=== PATIENT | male | born 1955 | race Caucasian/White ===

== ENCOUNTER 2022-07-15 06:56 | Emergency (ER) | payer OTHER, SELFPAY ==
[2022-07-15] VITALS (12 sets, daily range): BP systolic 119–170; BP diastolic 63–95; PULSE 85–87; RESP 17–20; TEMP 36.8; O2SAT 94–100
--- NOTE | ~2022-07-15 | CT_ITS ---
EXAMINATION: CT abdomen pelvis w con DATE: 07/15/2022 08:20 INDICATION: Abdominal pain TECHNIQUE: Computed tomography (CT) of the abdomen and pelvis was performed with 100 mL Omnipaque-350 intravenous contrast. Automated exposure control and iterative reconstruction technique were employe d. The dose-length product was 1514.55 mGy-cm. COMPARISON: None FINDINGS: Mild dependent atelectasis in the bilateral lower lobes and lingula. Heart size is normal. Atheroscle rotic coronary artery calcification. No pericardial or pleural effusion. Mild left gynecomastia. Live r, gallbladder, spleen, pancreas, bilateral adrenal glands and kidneys are normal. There is extensive colonic diverticulosis with a descending and sigmoid colon predominance. There is no adjacent infla mmatory change to suggest diverticulitis. Appendix is not visualized and there are surgical clips at the tip the cecum consistent with prior appendectomy. No bowel obstruction. Dense streak artifact as sociated with bilateral total hip arthroplasties obscures the posterior portion of the bladder which appears otherwise normal. Small right and moderate sized left fat-containing inguinal hernias. Severe lumbar and moderate lower thoracic spondylosis. Chronic T8 compression fracture with 20% anterior ve rtebral body height loss. IMPRESSION: 1. No acute intra-abdominal/pelvic process. 2. Diverticulosis. 3. Bilateral fat-containing inguinal hernias. Reviewed, dictated and finalized at location A. S [employer]
--- NOTE | 2022-07-15 07:43 | ED.GENADULT ---
HPI - General Adult General Chief complaint: Unspecified Stated complaint: Belching, abd distention Time Seen by Provider: 07/15/22 07:08 History of Present Illness HPI narrative: 67-year-old male presenting to the emergency department for evaluation of intermittent abdominal pain and belching. Patient states every morning for the last 2 weeks he wakes up he has belching. Patient also reports that he has had large bowel movements. Patient states this morning when he woke up he had fullness over his epigastrium but this was improved with belching. Patient states he also had a large bowel movement while in the ED and since then all of his abdominal pressure has resolved. Patient does have a prior history of abdominal surgery, prior appendectomy. Patient denies being diabetic Related Data Allergies Allergy/AdvReac Type Severity Reaction Status Date / Time No Known Allergies Allergy Verified 07/15/22 07:06 Review of Systems Review of Systems: All systems reviewed & are unremarkable except as noted in HPI and below Exam Narrative: APPEARANCE: Well appearing, no pain, no distress, well-nourished. HEAD: normocephalic, atraumatic. EYES: PERRLA/EOMI, conjunctivae clear. NOSE: Normal no drainage NECK: Supple. No adenopathy, no masses. RESPIRATORY: Airway patent, respirations nonlabored. Clear to auscultation bilaterally, no rales, rhonchi, wheezing. CARDIOVASCULAR: Regular rate and rhythm without murmurs rubs or gallops. ABDOMINAL: Soft, nontender, nondistended, normal bowel sounds MUSCULOSKELETAL: Moves all extremities. Strength/ROM intact, No edema, No calf tenderness. NEURO: Alert. Cranial nerves II through XII intact. Grossly intact SKIN: Warm, dry. Normal Color Course Course Emergency Course: 67-year-old male with intermittent belching, abdominal pressure and large bowel movements. Baseline labs are being ordered. CT scan will be ordered to evaluate for SBO, constipation, colitis. Patient declined any medications for nausea for pain control at this time. Patient was afebrile with no leukocytosis. Patient's chemistries were similar to his baseline. Patient's glucose was elevated at 154. UA showed no evidence of urinary tract infection. Patient CT showed no acute abnormalities. Patient was updated on the results of his work-up. Patient does describe having tingling of his hands and feet which does sound consistent with a diabetic neuropathy. Patient's blood sugars were elevated here. Patient was encouraged to have close follow-up with his primary care physician regarding further diabetic work-up. Patient was also encouraged to increase his dietary fiber intake to help with his constipation. Patient denies any complaints at time of discharge. Patient was comfortable to plan for discharge and close follow-up. Vital Signs Vital signs: Vital Signs Temperature 98.2 F 07/15/22 07:01 Pulse Rate 87 07/15/22 07:01 Respiratory Rate 17 07/15/22 07:01 Blood Pressure 170/68 H 07/15/22 07:01 Pulse Oximetry 97 07/15/22 07:01 Oxygen Delivery Room Air 07/15/22 07:01 Temperature 98.2 F 07/15/22 07:01 Pulse Rate 85 07/15/22 09:56 Respiratory Rate 18 07/15/22 09:56 Blood Pressure 119/79 07/15/22 09:56 Pulse Oximetry 95 07/15/22 09:56 Oxygen Delivery Room Air 07/15/22 07:01 Medical Decision Making Vital Signs Vital Signs: Vital Signs Temperature 98.2 F 07/15/22 07:01 Pulse Rate 87 07/15/22 07:01 Respiratory Rate 17 07/15/22 07:01 Blood Pressure 170/68 H 07/15/22 07:01 Pulse Oximetry 97 07/15/22 07:01 Oxygen Delivery Room Air 07/15/22 07:01 Temperature 98.2 F 07/15/22 07:01 Pulse Rate 85 07/15/22 09:56 Respiratory Rate 18 07/15/22 09:56 Blood Pressure 119/79 07/15/22 09:56 Pulse Oximetry 95 07/15/22 09:56 Oxygen Delivery Room Air 07/15/22 07:01 Lab Data Lab results reviewed: Yes I reviewed the patient's lab results. 07/15/22 07:48
[2022-07-15 07:54] LABS: Basophils Percent Auto 0.2 % (0.2-1.2); Eosinophils Absolute Auto 0.1 K/mm3 (0-0.3); Eosinophils Percent Auto 1.2 % (0-4.4); Hematocrit 39.9 % (42.0-52.0); Hemoglobin 13.4 g/dL (14.0-18.0); Immature Granulocyte Absolute 0.03 K/mm3 (0.00-0.031); Immature Granulocyte Percent A 0.3 % (0-0.5); Lymphocytes Percent Auto 20.8 % (18.3-44.2); Mean Corpuscular HGB Conc 33.6 g/dl (32-36); Mean Corpuscular Hemoglobin 31.1 pg (26-34); Mean Corpuscular Volume 92.6 fl (80-100); Mean Platelet Volume 9.4 fl (7.4-10.4); Monocytes Absolute Auto 0.7 K/mm3 (0.1-0.6); Monocytes Percent Auto 7.6 % (2.6-8.5); Neutrophils Absolute Auto 6.4 K/mm3 (1.3-6.7); Neutrophils Percent Auto 69.9 % (45.5-73.1); Platelet Count Result 186 k/mm3 (150-375); Red Blood Count 4.31 M/mm3 (4.6-6.20); Red Cell Distribution Width 12.6 % (11.5-14.5); White Blood Count 9.1 K/mm3 (4.5-10.0)
[2022-07-15 07:56] LABS: Appearance Urine Clear (Clear); Bilirubin Urine Negative (Negative); Blood Urine Negative (Negative); Color Urine Yellow (Yellow); Glucose Urine UA Negative (Negative); Ketones Urine Negative (Negative); Leukocyte Esterase Ur Negative LEU/UL (Negative); Nitrate Urine Negative (Negative); Protein Urine Negative (Negative); Specific Grav Ur 1.015 (1.001-1.035); Urobilinogen Urine 0.2 mg/dL (<2.0); pH Urine 5.5 (5.0-9.0)
[2022-07-15 08:07] LABS: Lactic Acid Reflex 1.7 mmol/L (0.7-2.0)
[2022-07-15 08:08] LABS: Alanine Aminotransferase 26 U/L (6-50); Alkaline Phosphatase 95 U/L (38-126); Anion Gap 7 mmol/L (8-16); Aspartate Amino Transferase 30 U/L (17-59); Bilirubin,Total 0.5 mg/dL (0.2-1.3); Blood Urea Nitrogen 20 mg/dL (9-20); Carbon Dioxide 26 mmol/L (22-30); Chloride 103 mmol/L (98-107); Estimated CRCL calculation 84 ml/min; Estimated Glomerular Filt Rate > 60; Glucose 154 mg/dL (65-110); Lipase 24 U/L (23-300); Potassium 4.1 mmol/L (3.4-5.0); Sodium 136 mmol/L (137-145)
[2022-07-15 08:29] LABS: Add Urine Microscopic? NO
== END 2022-07-15 10:08 | disposition home or self-care (01) ==
PROVIDERS: Emergency Provider Emergency Medicine
DX: K59.00 Constipation, unspecified (principal); R10.9 Unspecified abdominal pain; R73.9 Hyperglycemia, unspecified
CPT/HCPCS: 36415; 74177; 80053; 81003; 83605; 83690; 85025; 99284; Q9967